=== PATIENT | male | born 1965 | race Two or more races ===

== ENCOUNTER 2022-03-18 02:21 | Inpatient (IN) | payer OTHER ==
[2022-03-18] VITALS (14 sets, daily range): BP systolic 146–182; BP diastolic 1–99
[~2022-03-18] VITALS: Ht 160 cm; Wt 66.9 kg
[2022-03-18] MEDS ORDERED: CLON-441 PO ×2 (02:51→03:15)
[2022-03-18] MEDS ORDERED: CALC667T8 PO ×2 (02:51→03:15)
[2022-03-18 03:14] LABS: BASOPHILS % (AUTO) 0.9 % (0.0-2.0); EOSINOPHILS % (AUTO) 0.6 % (1.0-6.0); HEMATOCRIT 38.1 % (41-53); HEMOGLOBIN 12.7 g/dL (13.5-17.5); LYMPHOCYTES # (AUTO) 1.1 K/uL (1.0-4.8); LYMPHOCYTES % (AUTO) 15.3 % (22.0-44.0); MEAN CORPUSCULAR HEMOGLOBIN 32.5 pg (26.0-34.0); MEAN CORPUSCULAR HGB CONC 33.3 G/dL (31.0-37.0); MEAN CORPUSCULAR VOLUME 98 fL (80-100); MONOCYTES # (AUTO) 0.5 K/uL (0.1-1.0); MONOCYTES % (AUTO) 6.5 % (2.0-9.0); NEUTROPHILS # (AUTO) 5.7 K/uL (1.8-7.7); NEUTROPHILS % (AUTO) 76.7 % (40.0-70.0); PLATELET COUNT (AUTO) 176 K/uL (150-450); RED CELL DISTRIBUTION WIDTH 13.8 % (11.5-14.5)
[2022-03-18] MEDS ORDERED: METO50TA18 PO (03:15)
[2022-03-18] MEDS ORDERED: HALOPERIDOL 5 MG TABLET PO ONE ×2 (03:15→06:45)
[2022-03-18] MEDS ORDERED: ATOR20TA65 PO (03:15)
[2022-03-18] MEDS ORDERED: LOSA-382 PO (03:15)
[2022-03-18] MEDS ORDERED: CLOP75TA14 PO (03:15)
[2022-03-18] MEDS ORDERED: ASPI81TA87 PO (03:15)
[2022-03-18] MEDS ORDERED: LORazepam 1 MG TABLET PO ONE (03:15)
[2022-03-18] MEDS ORDERED: AMLO-258 PO (03:15)
[2022-03-18] MEDS ORDERED: LORA-550 PO (03:15)
[2022-03-18 03:23] LABS: ANION GAP 17 mmol/L (8-16); CARBON DIOXIDE 23 mmol/L (22-29); CHLORIDE 94 mmol/L (98-107); CREATININE 10.89 mg/dL (0.60-1.30); GLOMERULAR FILTR. RATE CALC 5 mL/min (>60); GLUCOSE,RANDOM 145 mg/dL (70-110); POTASSIUM 5.1 mmol/L (3.5-5.1); SODIUM SERUM 134 mmol/L (136-145); UREA NITROGEN, BLOOD 75 mg/dL (7-18)
[2022-03-18 03:28] LABS: ALANINE AMINOTRANSFERASE 24 U/L (12-78); ALBUMIN 4.1 g/dL (3.4-5.0); ALKALINE PHOSPHATASE 81 U/L (46-116); ASPARTATE AMINOTRANSFERASE 29 U/L (15-37); BILIRUBIN,TOTAL 0.3 mg/dL (0.1-1.0); TOTAL PROTEIN, SERUM 7.8 g/dL (6.4-8.2)
[2022-03-18 09:45] LABS: GLUCOMETER DEV NAME(LOC) ERT.5; GLUCOSE,POINT OF CARE 138 MG/DL (70-110)
[2022-03-18] MEDS ORDERED: 0.9% SODIUM CHLORIDE 10 ML SYRINGE IVP PRN (10:45)
[2022-03-18] MEDS ORDERED: ACETAMINOPHEN 325 MG TABLET PO PRN ×2 (10:45→13:30)
[2022-03-18 10:52] LABS: COVID AG,FIA SOURCE NASAL SWAB
[2022-03-18 10:57] LABS: THYROID STIMULATING HORMONE 1.45 uIU/mL (0.36-3.74)
[2022-03-18] MEDS ORDERED: AmLODIPine BESYLATE 10 MG TABLET PO SCH (11:00)
[2022-03-18] MEDS ORDERED: ONDANSETRON HCL 4 MG/2 ML VIAL IVP PRN (13:30)
[2022-03-18] MEDS: HEPARIN SODIUM,PORCINE 5,000 UNITS/ML VIAL SQ SCH ×2 (16:00→23:44)
[2022-03-18] MEDS ORDERED: SODIUM CHLORIDE 0.9% 1,000 ML ONE (16:18)
[2022-03-18] MEDS: VITAMIN B COMP/VIT C/FOLIC ACID CAPSULE PO SCH (16:30)
[2022-03-18] MEDS: DOCUSATE SODIUM 100 MG CAPSULE PO SCH (21:06)
[2022-03-18] MEDS: CALCIUM ACETATE 667 MG CAPSULE PO SCH (21:06)
[2022-03-18] MEDS: CloNIDine HCL 0.1 MG TABLET PO PRN (21:07)
[2022-03-19 00:35] VITALS: BP 146/76
[2022-03-19 04:55] VITALS: BP 151/84
[2022-03-19 07:45] VITALS: BP 143/84
[2022-03-19] MEDS: CALCIUM ACETATE 667 MG CAPSULE PO SCH ×3 (08:57→16:13)
[2022-03-19] MEDS: FAMOTIDINE 20 MG TABLET PO SCH (08:57)
[2022-03-19] MEDS: VITAMIN B COMP/VIT C/FOLIC ACID CAPSULE PO SCH (08:58)
[2022-03-19] MEDS: DOCUSATE SODIUM 100 MG CAPSULE PO SCH ×2 (08:58→20:55)
[2022-03-19] MEDS: ASPIRIN 81 MG CHEWABLE TABLET PO SCH (08:58)
[2022-03-19] MEDS: AmLODIPine BESYLATE 5 MG TABLET PO SCH (08:58)
[2022-03-19] MEDS: HEPARIN SODIUM,PORCINE 5,000 UNITS/ML VIAL SQ SCH ×3 (08:58→23:31)
[2022-03-19] MEDS: LOSARTAN POTASSIUM 50 MG TABLET PO SCH (08:58)
[2022-03-19] MEDS: BENZTROPINE MESYLATE 1 MG TABLET PO SCH ×2 (08:58→20:55)
[2022-03-19 16:16] VITALS: BP 130/62
[2022-03-19 19:18] VITALS: BP 152/70
[2022-03-20 04:11] VITALS: BP 149/86
[2022-03-20 07:22] VITALS: BP 155/77
[2022-03-20] MEDS: HEPARIN SODIUM,PORCINE 5,000 UNITS/ML VIAL SQ SCH ×2 (08:28→15:24)
[2022-03-20] MEDS: VITAMIN B COMP/VIT C/FOLIC ACID CAPSULE PO SCH (08:28)
[2022-03-20] MEDS: CALCIUM ACETATE 667 MG CAPSULE PO SCH ×3 (08:28→17:43)
[2022-03-20] MEDS: FAMOTIDINE 20 MG TABLET PO SCH (08:29)
[2022-03-20] MEDS: BENZTROPINE MESYLATE 1 MG TABLET PO SCH ×2 (08:29→21:09)
[2022-03-20] MEDS: LOSARTAN POTASSIUM 50 MG TABLET PO SCH (08:29)
[2022-03-20] MEDS: AmLODIPine BESYLATE 5 MG TABLET PO SCH (08:29)
[2022-03-20] MEDS: ASPIRIN 81 MG CHEWABLE TABLET PO SCH (08:29)
[2022-03-20] MEDS: DOCUSATE SODIUM 100 MG CAPSULE PO SCH ×2 (08:30→21:09)
[2022-03-20] MEDS: CloNIDine HCL 0.1 MG TABLET PO PRN (15:24)
[2022-03-20 15:36] VITALS: BP 174/90
[2022-03-20 19:15] VITALS: BP 151/86
[2022-03-20] MEDS ORDERED: HALOPERIDOL LACTATE 5 MG/ML VIAL IM ONE (23:45)
[2022-03-20] MEDS ORDERED: ATOR40TA28 PO (23:50)
[2022-03-21] VITALS (16 sets, daily range): BP systolic 148–185; BP diastolic 75–107
[2022-03-21] MEDS ORDERED: LORazepam 0.5 MG TABLET PO ONE (00:15)
[2022-03-21] MEDS ORDERED: DiphenhydrAMINE HCL 50 MG/ML VIAL IM ONE (00:15)
[2022-03-21] MEDS ORDERED: MELATONIN 3 MG TABLET PO ONE (00:15)
[2022-03-21] MEDS: HEPARIN SODIUM,PORCINE 5,000 UNITS/ML VIAL SQ SCH ×3 (00:27→17:04)
[2022-03-21 06:36] LABS: BASOPHILS % (AUTO) 0.7 % (0.0-2.0); EOSINOPHILS % (AUTO) 2.3 % (1.0-6.0); HEMATOCRIT 32.6 % (41-53); LYMPHOCYTES # (AUTO) 1.4 K/uL (1.0-4.8); MEAN CORPUSCULAR HEMOGLOBIN 32.7 pg (26.0-34.0); MEAN CORPUSCULAR HGB CONC 33.7 G/dL (31.0-37.0); MEAN CORPUSCULAR VOLUME 97 fL (80-100); MONOCYTES # (AUTO) 0.6 K/uL (0.1-1.0); MONOCYTES % (AUTO) 7.1 % (2.0-9.0); NEUTROPHILS % (AUTO) 72.9 % (40.0-70.0); PLATELET COUNT (AUTO) 215 K/uL (150-450); RED BLOOD CELL COUNT(AUTO) 3.36 MIL/uL (4.50-5.90); RED CELL DISTRIBUTION WIDTH 13.5 % (11.5-14.5)
[2022-03-21 06:53] LABS: CALCIUM, TOTAL 9.7 mg/dL (8.8-10.5); CREATININE 11.85 mg/dL (0.60-1.30); POTASSIUM 4.8 mmol/L (3.5-5.1)
[2022-03-21] MEDS: BENZTROPINE MESYLATE 1 MG TABLET PO SCH ×2 (08:08→21:27)
[2022-03-21] MEDS: FAMOTIDINE 20 MG TABLET PO SCH (08:08)
[2022-03-21] MEDS: CALCIUM ACETATE 667 MG CAPSULE PO SCH ×4 (08:15→17:03)
[2022-03-21 08:41] LABS: MAGNESIUM 2.5 mg/dL (1.80-2.40); PHOSPHORUS 4.6 mg/dL (2.5-4.9)
[2022-03-21] MEDS ORDERED: SODIUM CHLORIDE 0.9% 2,000 ML ONE (11:58)
[2022-03-21] MEDS ORDERED: LORazepam 2 MG/ML VIAL IM PRN (16:45)
[2022-03-21] MEDS ORDERED: HALOPERIDOL 5 MG TABLET PO PRN (16:45)
[2022-03-21] MEDS: LORazepam 2 MG TABLET PO PRN ×2 (17:03→21:27)
[2022-03-21] MEDS: AmLODIPine BESYLATE 5 MG TABLET PO SCH (17:03)
[2022-03-21] MEDS: DOCUSATE SODIUM 100 MG CAPSULE PO SCH ×2 (17:03→21:26)
[2022-03-21] MEDS: VITAMIN B COMP/VIT C/FOLIC ACID CAPSULE PO SCH (17:03)
[2022-03-21] MEDS: ASPIRIN 81 MG CHEWABLE TABLET PO SCH (17:03)
[2022-03-21] MEDS: LOSARTAN POTASSIUM 50 MG TABLET PO SCH (17:03)
[2022-03-21] MEDS: CloNIDine HCL 0.1 MG TABLET PO PRN (19:28)
[2022-03-21] MEDS: HALOPERIDOL LACTATE 5 MG/ML VIAL IM PRN (21:35)
[2022-03-22] VITALS (7 sets, daily range): BP systolic 143–169; BP diastolic 76–98
[2022-03-22] MEDS: HEPARIN SODIUM,PORCINE 5,000 UNITS/ML VIAL SQ SCH ×4 (00:27→23:34)
[2022-03-22] MEDS: AmLODIPine BESYLATE 5 MG TABLET PO SCH (08:00)
[2022-03-22] MEDS: CALCIUM ACETATE 667 MG CAPSULE PO SCH ×3 (08:00→16:09)
[2022-03-22] MEDS: LOSARTAN POTASSIUM 50 MG TABLET PO SCH (08:00)
[2022-03-22] MEDS: ASPIRIN 81 MG CHEWABLE TABLET PO SCH (08:00)
[2022-03-22] MEDS: BENZTROPINE MESYLATE 1 MG TABLET PO SCH ×2 (08:00→20:16)
[2022-03-22] MEDS: FAMOTIDINE 20 MG TABLET PO SCH (08:00)
[2022-03-22] MEDS: VITAMIN B COMP/VIT C/FOLIC ACID CAPSULE PO SCH (08:00)
[2022-03-22] MEDS: DOCUSATE SODIUM 100 MG CAPSULE PO SCH ×2 (08:00→20:19)
[2022-03-22] MEDS: CloNIDine HCL 0.1 MG TABLET PO PRN (09:22)
[2022-03-22] MEDS: LORazepam 2 MG TABLET PO PRN (09:22)
[2022-03-22] MEDS: HALOPERIDOL LACTATE 5 MG/ML VIAL IM PRN (23:44)
[2022-03-23] VITALS (14 sets, daily range): BP systolic 140–180; BP diastolic 73–101
[2022-03-23 07:22] LABS: BASOPHILS % (AUTO) 0.5 % (0.0-2.0); EOSINOPHILS % (AUTO) 2.5 % (1.0-6.0); HEMATOCRIT 31.6 % (41-53); HEMOGLOBIN 10.7 g/dL (13.5-17.5); LYMPHOCYTES % (AUTO) 12.5 % (22.0-44.0); MEAN CORPUSCULAR HEMOGLOBIN 33.2 pg (26.0-34.0); MEAN CORPUSCULAR VOLUME 98 fL (80-100); MONOCYTES # (AUTO) 0.5 K/uL (0.1-1.0); MONOCYTES % (AUTO) 6.4 % (2.0-9.0); NEUTROPHILS # (AUTO) 6.5 K/uL (1.8-7.7); NEUTROPHILS % (AUTO) 78.1 % (40.0-70.0); PLATELET COUNT (AUTO) 187 K/uL (150-450); RED BLOOD CELL COUNT(AUTO) 3.23 MIL/uL (4.50-5.90); RED CELL DISTRIBUTION WIDTH 13.6 % (11.5-14.5)
[2022-03-23 07:27] LABS: HEMOGLOBIN A1C 5.7 % (3.8-5.6)
[2022-03-23] MEDS ORDERED: SODIUM CHLORIDE 0.9% 1,000 ML ONE (07:37)
[2022-03-23 07:59] LABS: CALCIUM, TOTAL 9.3 mg/dL (8.8-10.5); CREATININE 11.03 mg/dL (0.60-1.30)
[2022-03-23] MEDS: HEPARIN SODIUM,PORCINE 5,000 UNITS/ML VIAL SQ SCH ×3 (08:00→23:24)
[2022-03-23] MEDS: CALCIUM ACETATE 667 MG CAPSULE PO SCH ×3 (08:00→17:12)
[2022-03-23] MEDS: FAMOTIDINE 20 MG TABLET PO SCH (09:00)
[2022-03-23] MEDS: LOSARTAN POTASSIUM 50 MG TABLET PO SCH ×2 (09:00→11:34)
[2022-03-23] MEDS: VITAMIN B COMP/VIT C/FOLIC ACID CAPSULE PO SCH ×2 (09:00→11:35)
[2022-03-23] MEDS: ASPIRIN 81 MG CHEWABLE TABLET PO SCH ×2 (09:00→11:34)
[2022-03-23] MEDS: BENZTROPINE MESYLATE 1 MG TABLET PO SCH ×2 (09:00→20:17)
[2022-03-23] MEDS: DOCUSATE SODIUM 100 MG CAPSULE PO SCH ×2 (09:00→20:17)
[2022-03-23] MEDS: AmLODIPine BESYLATE 5 MG TABLET PO SCH ×2 (09:00→11:35)
[2022-03-23] MEDS ORDERED: AmLODIPine BESYLATE 5 MG TABLET PO ONE (12:00)
[2022-03-24 04:17] VITALS: BP 138/80
[2022-03-24 08:00] VITALS: BP 146/80
[2022-03-24] MEDS ORDERED: AmLODIPine BESYLATE 10 MG TABLET PO SCH (09:00)
[2022-03-24] MEDS ORDERED: EPOETIN ALFA 10,000 UNITS/ML 2 ML VIAL SQ SCH (09:00)
[2022-03-24] MEDS: HEPARIN SODIUM,PORCINE 5,000 UNITS/ML VIAL SQ SCH (09:20)
[2022-03-24] MEDS: VITAMIN B COMP/VIT C/FOLIC ACID CAPSULE PO SCH (09:21)
[2022-03-24] MEDS: BENZTROPINE MESYLATE 1 MG TABLET PO SCH (09:21)
[2022-03-24] MEDS: LOSARTAN POTASSIUM 50 MG TABLET PO SCH (09:21)
[2022-03-24] MEDS: FAMOTIDINE 20 MG TABLET PO SCH (09:21)
[2022-03-24] MEDS: CALCIUM ACETATE 667 MG CAPSULE PO SCH ×2 (09:21→12:56)
[2022-03-24] MEDS: DOCUSATE SODIUM 100 MG CAPSULE PO SCH (09:21)
[2022-03-24] MEDS: ASPIRIN 81 MG CHEWABLE TABLET PO SCH (09:22)
[2022-03-24] MEDS ORDERED: PHOSLOC PO (13:07)
[2022-03-24] MEDS ORDERED: BENZ1TAB96 PO (13:07)
== END 2022-03-24 15:40 | disposition home or self-care (01) | DRG 470 ==
LOC: EMS 02:22 → 6N 12:31 → 6S 03-20 12:11
PROVIDERS: ADMIT Internal Medicine; ATTEND Internal Medicine
PROC: 5A1D70Z Performance of Urinary Filtration, Intermittent, Less than 6 Hours Per Day (ICD-10-PCS; principal; 2022-03-18)
PROC: 5A1D70Z Performance of Urinary Filtration, Intermittent, Less than 6 Hours Per Day (ICD-10-PCS; 2022-03-21)
PROC: 5A1D70Z Performance of Urinary Filtration, Intermittent, Less than 6 Hours Per Day (ICD-10-PCS; 2022-03-23)
DX: I12.0 Hypertensive chronic kidney disease with stage 5 chronic kidney disease or end stage renal disease (principal); N18.6 End stage renal disease; F22 Delusional disorders; R45.851 Suicidal ideations; D63.1 Anemia in chronic kidney disease; N25.81 Secondary hyperparathyroidism of renal origin; E11.22 Type 2 diabetes mellitus with diabetic chronic kidney disease; Z20.822 Contact with and (suspected) exposure to COVID-19; E11.21 Type 2 diabetes mellitus with diabetic nephropathy; F99 Mental disorder, not otherwise specified; Z86.73 Personal history of transient ischemic attack (TIA), and cerebral infarction without residual deficits; Z99.2 Dependence on renal dialysis; Z82.3 Family history of stroke
CPT/HCPCS: 70450; 80048; 80053; 82140; 82962; 83036; 83735; 84100; 84443; 85025; 87081; 87340; 90935; 93005; 99285; G0480; J0885; J1200; J1630; J1644; J2060; J7030